=== PATIENT | female | born 1990 | race Caucasian/White ===

== ENCOUNTER 2020-03-29 11:02 | Emergency (ER) | payer OTHER ==
[~2020-03-29] VITALS: Ht 165.1 cm; Wt 90.7 kg
[2020-03-29] MEDS ORDERED: HYDROCHLOROTHIA25 M2 PO (11:15)
[2020-03-29] MEDS ORDERED: PROMETH-CODEIN 65 ML PO (13:30)
[2020-03-29 13:50] VITALS: BP 117/65
== END 2020-03-29 13:53 | disposition home or self-care (01) ==
LOC: ER 11:02
DX: R05 Cough (principal); Z20.828 Contact with and (suspected) exposure to other viral communicable diseases; J02.9 Acute pharyngitis, unspecified; M79.10 Myalgia, unspecified site; Z79.899 Other long term (current) drug therapy; R53.83 Other fatigue; R50.9 Fever, unspecified